=== PATIENT | female | born 2000 | race Caucasian/White ===

== ENCOUNTER 2021-10-17 18:58 | Emergency (ER) | payer BC ==
[~2021-10-17] VITALS: Ht 157.5 cm; Wt 77.3 kg
[2021-10-17 19:47] VITALS: TEMP 98.1
[2021-10-17 22:00] VITALS: BP 154/112; PULSE 72
== END 2021-10-17 22:00 | disposition home or self-care (01) ==
LOC: COL.ER 18:58
DX: R51.9 Headache, unspecified (principal); Z87.728 Personal history of other specified (corrected) congenital malformations of nervous system and sense organs; Z32.02 Encounter for pregnancy test, result negative
CPT/HCPCS: J1200; J2765; J7030